=== PATIENT | male | born 1975 | race Native Hawaiian/Other Pacific Islander ===

== ENCOUNTER 2020-07-27 14:17 | Emergency (ER) | payer OTHER ==
[~2020-07-27] VITALS: Ht 175.3 cm; Wt 65.8 kg
[2020-07-27 14:32] VITALS: Ht 175.3 cm; Wt 65.8 kg
[2020-07-27 16:13] VITALS: BP 118/63
== END 2020-07-27 16:13 | disposition home or self-care (01) ==
LOC: ED 14:17
DX: S61.011A Laceration without foreign body of right thumb without damage to nail, initial encounter (principal); S50.12XA Contusion of left forearm, initial encounter; S09.8XXA Other specified injuries of head, initial encounter; J45.909 Unspecified asthma, uncomplicated; V49.49XA Driver injured in collision with other motor vehicles in traffic accident, initial encounter; Y93.I9 Activity, other involving external motion; Y92.488 Other paved roadways as the place of occurrence of the external cause; Y99.8 Other external cause status
CPT/HCPCS: 90715; J2001